=== PATIENT | male | born 1950 | race Caucasian/White ===

== ENCOUNTER 2016-08-17 11:49 | Emergency (ER) ==
[2016-08-17] MEDS ORDERED: LIDOCAINE 1 % AMP 5 ML (SUTURES) SUBCUT STA (11:52)
[2016-08-17 11:57] VITALS: BP 155/105; TEMP 99.4; BMI 29.4
--- NOTE | 2016-08-17 12:21 | ED.PDOC ---
General ED Provider: Dr. MELY PARKS Chief Complaint: Laceration Stated Complaint: laceration right hand base of third finger Time Seen by Physician: 12:00 (1 hr ago by a sharp object) Mode of Arrival: Walk-In Information Source: Patient Exam Limitations: No limitations Primary Care Provider: JUDITH BABIN Nursing and Triage Documentation Reviewed and Agree: Yes (photos submitted ) Review of Systems - Review Of Systems Constitutional: Reports: No symptoms Eyes: Reports: No symptoms Ears, Nose, Mouth, Throat: Reports: No symptoms Respiratory: Reports: No symptoms Cardiac: Reports: No symptoms GI: Reports: No symptoms : Reports: No symptoms Musculoskeletal: Reports: Other (laceration righ hand see photos) Skin: Reports: No symptoms Neurological: Reports: No symptoms Endocrine: Reports: No symptoms Hematologic/Lymphatic: Reports: No symptoms All Other Systems: Reviewed and Negative Past Medical History - Past Medical History Previously Healthy: Yes Endocrine: Reports: None Cardiovascular: Reports: None Respiratory: Reports: None Hematological: Reports: None Gastrointestinal: Reports: None Genitourinary: Reports: None Neuro/Psych: Reports: None Musculoskeletal: Reports: None Cancer: Reports: None - Surgical History General Surgical History: Reports: None - Family History Family History: Reports: None - Social History Smoking Status: Former smoker Hx Substance Use: No Alcohol Screening: None - Immunizations Tetanus Shot up to Date: Yes (2014) Physical Exam - Physical Exam Appearance: Well-appearing (see photos before and after ), No pain distress, Well-nourished Eyes: RIVER, EOMI, Conjunctiva clear ENT: Ears normal, Nose normal, Oropharynx normal Respiratory: Airway patent, Breath sounds clear, Breath sounds equal, Respirations nonlabored Cardiovascular: RRR, Pulses normal, No rub, No murmur GI/: Soft, Nontender, No masses, Bowel sounds normal, No Organomegaly Musculoskeletal: ROM intact Skin: Warm, Dry, Normal color Neurological: Sensation intact, Motor intact, Reflexes intact, Cranial nerves intact, Alert, Oriented Psychiatric: Affect appropriate, Mood appropriate Procedures - Laceration/Wound Repair No standard instances Wound Description: Linear Wound Length (cm): 1 Wound Width: 4mm Wound Depth: 3mm Wound Explored: Clean Wound Irrigated: No Wound Prep: Saline, Hibiclens Anesthesia: Lidocaine (plain 3 ml) Undermining: Minimal Wound Margins: Vermilion border aligned Wound Repaired With: Sutures Suture Size and Type: 3 prolene Number of Sutures: 4 Number of [place]: 0 Layer Closure?: No Number Deep Layer Sutures: 1 (see photos) Critical Care Note - Critical Care Note Total Time (mins): 0 Course - Course Orders, Labs, Meds: Orders Category Date Time Status Lidocaine HCl/Pf [Lidocaine 1 % Amp 5 ml (Sutures)] MEDS 08/17/16 11:52 Discontinued 5 ml SUBCUT ONCE STA Medications Discontinued Medications Generic Name Dose Route Start Last Admin Trade Name Mei PRN Reason Stop Dose Admin Lidocaine HCl 5 ml 08/17/16 11:52 Lidocaine 1 % Amp 5 Ml (Sutures) SUBCUT 08/17/16 11:53 ONCE STA Vital Signs: Temp Pulse Resp BP Pulse Ox 08/17/16 11:49 99.4 F 91 H 20 155/105 H 96 Departure - Departure Time of Disposition: 12:22 (full ROM SEE PHOTOS BEFORE AND AFTER ) Disposition: HOME SELF-CARE Discharge Problem: Laceration - injury Instructions: Laceration (ED), Care For Your Stitches (ED), Finger Laceration ( ED) Condition: Good Pt referred to PMD for follow-up: Yes Additional Instructions: Please call your Family Physician as soon as possible to schedule a follow-up appointment. Allergies/Adverse Reactions: Allergies niacin Adverse Reaction (Verified 08/17/16 12:01) Home Medications: Ambulatory Orders Metformin HCl 500 mg PO DAILY 08/17/16
== END 2016-08-17 12:28 | disposition home or self-care (01) ==
LOC: ED 11:49
DX: S61.411A Laceration without foreign body of right hand, initial encounter (principal); W26.9XXA Contact with unspecified sharp object(s), initial encounter
CPT/HCPCS: 99283